=== PATIENT | male | born 1995 | race Caucasian/White ===

== ENCOUNTER 2023-10-22 15:26 | Emergency (ER) | payer OTHER ==
[~2023-10-22] VITALS: Ht 175.3 cm; Wt 74.8 kg
[2023-10-22 15:34] VITALS: BP 149/89; PULSE 110; RESP 18; TEMP 98.9; O2SAT 98
[2023-10-22] MEDS: LIDOCAINE MPF 1% 10 MG/ML VIAL INJ ONE (17:25)
[2023-10-22] MEDS ORDERED: ACET-8905 PO (18:24)
[2023-10-22] MEDS ORDERED: IBUP-2213 PO (18:24)
[2023-10-22 18:47] VITALS: BP 136/75; PULSE 67; RESP 16; TEMP 98; O2SAT 99
== END 2023-10-22 18:47 | disposition home or self-care (01) ==
LOC: MED 15:26
DX: S62.337A Displaced fracture of neck of fifth metacarpal bone, left hand, initial encounter for closed fracture (principal); R03.0 Elevated blood-pressure reading, without diagnosis of hypertension; Z79.899 Other long term (current) drug therapy; W22.09XA Striking against other stationary object, initial encounter; Y93.89 Activity, other specified; Y92.89 Other specified places as the place of occurrence of the external cause; Y99.8 Other external cause status
CPT/HCPCS: 26605; 73130; 99284; J2001; 99283